=== PATIENT | male | born 1950 | race Caucasian/White ===

== ENCOUNTER 2022-04-27 23:23 | Emergency (ER) | payer OTHER ==
[2022-04-27 23:53] VITALS: BP 147/92; PULSE 93; TEMP 97.6; BMI 26.2
== END 2022-04-28 00:05 | disposition left against medical advice (07) ==
LOC: JER 23:23
DX: R06.02 Shortness of breath (principal)
CPT/HCPCS: 93005; 93010; 99283-25

== ENCOUNTER 2023-10-10 22:05 | Observation (INO) | payer OTHER ==
[2023-10-10 22:16] VITALS: BMI 25.8
[2023-10-11 00:18] LABS: BASO % 0.5 % (0-2.0); EOS % 9.2 % (0-4.5); HEMATOCRIT 21.3 % (35.4-49); LYMPH % 23.6 % (8-40); MCH 21.7 pg (25.7-33.7); MCHC 31.2 g/dl (32.0-35.9); MEAN CELL VOLUME 69.6 fl (80-96); MEAN PLT VOLUME 7.9 fl (7.5-11.1); MONO % 12.5 % (3.8-10.2); NEUT % 54.2 % (42.8-82.8); PLATELET COUNT 387 10^3/uL (134-434); RBC 3.06 M/mm3 (4.00-5.60); RDW 21.7 % (11.9-15.9); WHITE BLOOD COUNT 6.1 K/mm3 (4.0-10.0)
[2023-10-11 00:23] LABS: HEMOGLOBIN 6.6 GM/dL (11.7-16.9)
[2023-10-11 00:40] LABS: POTASSIUM 4.6 mmol/L (3.5-5.1)
[2023-10-11 00:43] LABS: CALCIUM 8.4 mg/dL (8.5-10.1)
[2023-10-11 00:44] LABS: ALBUMIN 3.1 g/dl (3.4-5.0); BLOOD UREA NITROGEN 13.1 mg/dL (7-18)
[2023-10-11 00:47] LABS: CREATININE 0.8 mg/dL (0.55-1.3)
[2023-10-11 00:48] LABS: TOT PROT 6.7 g/dl (6.4-8.2)
[2023-10-11 00:49] LABS: BILIRUBIN,TOTAL 0.3 mg/dL (0.2-1)
[2023-10-11 05:49] LABS: ANISOCYTOSIS 2+; MACROCYTOSIS 0; OVALOCYTE 1+
[2023-10-11 09:24] LABS: BASO % 0.8 % (0-2.0); EOS % 9.5 % (0-4.5); HEMOGLOBIN 7.3 GM/dL (11.7-16.9); MCH 22.6 pg (25.7-33.7); MCHC 31.6 g/dl (32.0-35.9); MEAN CELL VOLUME 71.6 fl (80-96); MEAN PLT VOLUME 8.2 fl (7.5-11.1); MONO % 11.4 % (3.8-10.2); NEUT % 57.3 % (42.8-82.8); PLATELET COUNT 339 10^3/uL (134-434); RBC 3.22 M/mm3 (4.00-5.60); RDW 22.4 % (11.9-15.9); WHITE BLOOD COUNT 5.7 K/mm3 (4.0-10.0)
[2023-10-11 09:41] LABS: POTASSIUM 4.2 mmol/L (3.5-5.1)
[2023-10-11 10:02] LABS: BLOOD UREA NITROGEN 10.7 mg/dL (7-18); CALCIUM 8.8 mg/dL (8.5-10.1)
[2023-10-11 10:04] LABS: CREATININE 0.8 mg/dL (0.55-1.3)
[2023-10-11] MEDS ORDERED: IRON SUCROSE INJECTION 200 MG in SODIUM CHLORIDE 90 ML IVPB ONE (17:15)
[2023-10-12 06:44] VITALS: PULSE 77
[2023-10-12 09:48] LABS: BASO % 1.4 % (0-2.0); EOS % 9.7 % (0-4.5); HEMATOCRIT 25.7 % (35.4-49); HEMOGLOBIN 8.2 GM/dL (11.7-16.9); LYMPH % 17.8 % (8-40); MCH 22.8 pg (25.7-33.7); MEAN CELL VOLUME 71.2 fl (80-96); MEAN PLT VOLUME 8.1 fl (7.5-11.1); MONO % 11.3 % (3.8-10.2); NEUT % 59.8 % (42.8-82.8); PLATELET COUNT 392 10^3/uL (134-434); RBC 3.61 M/mm3 (4.00-5.60); RDW 22.1 % (11.9-15.9); RETICULOCYTES 2.77 % (0.5-1.5); WHITE BLOOD COUNT 5.2 K/mm3 (4.0-10.0)
[2023-10-12 09:59] LABS: POTASSIUM 4.3 mmol/L (3.5-5.1)
[2023-10-12 10:02] LABS: CALCIUM 8.8 mg/dL (8.5-10.1)
[2023-10-12 10:06] LABS: CREATININE 0.9 mg/dL (0.55-1.3)
[2023-10-12 11:38] VITALS: BP 105/69; RESP 18; TEMP 98
== END 2023-10-12 14:00 | disposition home or self-care (01) ==
LOC: JER 22:05 → JERBED 10-11 00:33 → J7W 10-11 03:09
PROVIDERS: ADMIT Internal Medicine; ATTEND Internal Medicine
PROC: 30233N1 Transfusion of Nonautologous Red Blood Cells into Peripheral Vein, Percutaneous Approach (ICD-10-PCS; principal; 2023-10-11)
PROC: 3E033GC Introduction of Other Therapeutic Substance into Peripheral Vein, Percutaneous Approach (ICD-10-PCS; 2023-10-11)
DX: I65.22 Occlusion and stenosis of left carotid artery (principal); D50.9 Iron deficiency anemia, unspecified; R42 Dizziness and giddiness; I25.10 Atherosclerotic heart disease of native coronary artery without angina pectoris; I11.0 Hypertensive heart disease with heart failure
CPT/HCPCS: 0241U-QW; 36415; 36430; 71045-TC-FY; 80048; 80053; 82272; 82607; 82728; 82746; 83540; 83550; 84484; 85025; 85045; 86850; 86900; 86901; 86922; 93005; 93010; 96365; 96375; 99285-25; G0378; J1756; P9058